=== PATIENT | male | born 1930 | race Caucasian/White ===

== ENCOUNTER 2016-12-30 13:09 | Outpatient (RCR) | payer MEDICARE ==
--- OUTSIDE RECORDS SUMMARY | 2016-12-23 13:14 | XMS REPORT | Continuity of Care Document ---
Author Author [facility] Organization [facility] Address Unknown Phone Unavailable Allergies Active Description Code Type Severity Reaction Onset Reported/Identified Relationship to Patient Clinical Status Yes No Known Drug Allergies [id number] Drug Allergy Unknown N/ A 08/07/2015 Medications Problems Date Dx Coded Attending Type Code Diagnosis Diagnosed By 09/01/2015 IBETH MANN, ELIZABETH P Ot I65.23 09/01/2015 IBETH MANN, ELIZABETH P Ot K11.20 09/03/2015 IBETH MANN, ELIZABETH P Ot I65.23 09/03/2015 IBETH MANN, ELIZABETH P Ot K11.20 10/22/2015 IBETH MANN, ELIZABETH P Ot I65.23 10/22/2015 IBETH MANN, ELIZABETH P Ot K11.20 10/23/2015 IBETH MANN, ELIZABETH P Ot I65.23 10/23/2015 IBETH MANN, ELIZABETH P Ot K11.20 12/03/2015 THERON LANDRY MD Ot R79.9 12/04/2015 THERON LANDRY MD Ot R79.9 01/21/2016 THERON LANDRY MD Ot R79.9 ABNORMAL FINDING OF BLOOD CHEMISTRY, UNS 01/22/2016 THERON LANDRY MD Ot R79.9 02/26/2016 THERON LANDRY MD Ot R79.9 ABNORMAL FINDING OF BLOOD CHEMISTRY, UNS 02/27/2016 ELIZABETH CRISTINA MD Ot 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 02/27/2016 ELIZABETH CRISTINA MD Ot 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, UNSPECIFIED 02/27/2016 THERON LANDRY MD, Ot R79.9 ABNORMAL FINDING OF BLOOD CHEMISTRY, UNS 02/27/2016 THERON LANDRY MD Ot R79.9 ABNORMAL FINDING OF BLOOD CHEMISTRY, UNS 03/01/2016 THERON LANDRY MD Ot R60.0 LOCALIZED EDEMA 03/18/2016 THERON LANDRY MD Ot R60.0 LOCALIZED EDEMA 03/29/2016 THERON LANDRY MD Ot R79.9 ABNORMAL FINDING OF BLOOD CHEMISTRY, UNS 04/01/2016 THERON LANDRY MD Ot R60.0 LOCALIZED EDEMA 04/07/2016 THERON LANDRY MD Ot R79.9 ABNORMAL FINDING OF BLOOD CHEMISTRY, UNS 05/26/2016 THERON LANDRY MD Ot R79.9 ABNORMAL FINDING OF BLOOD CHEMISTRY, UNS 05/27/2016 THERON LANDRY MD Ot R79.9 ABNORMAL FINDING OF BLOOD CHEMISTRY, UNS 06/02/2016 THERON LANDRY MD Ot R79.9 ABNORMAL FINDING OF BLOOD CHEMISTRY, UNS 06/04/2016 THERON LANDRY MD Ot R79.9 ABNORMAL FINDING OF BLOOD CHEMISTRY, UNS 06/29/2016 THERON LANDRY MD Ot R60.0 LOCALIZED EDEMA 06/29/2016 THERON LANDRY MD Ot R79.9 ABNORMAL FINDING OF BLOOD CHEMISTRY, UNS 08/04/2016 THERON LANDRY MD Ot R60.0 LOCALIZED EDEMA 08/04/2016 THERON LANDRY MD Ot R79.9 ABNORMAL FINDING OF BLOOD CHEMISTRY, UNS 09/01/2016 THERON LANDRY MD Ot R60.0 LOCALIZED EDEMA 09/01/2016 THERON LANDRY MD Ot R79.9 ABNORMAL FINDING OF BLOOD CHEMISTRY, UNS 09/02/2016 THERON LANDRY MD Ot R60.0 LOCALIZED EDEMA 09/02/2016 THERON LANDRY MD Ot R79.9 ABNORMAL FINDING OF BLOOD CHEMISTRY, UNS Procedures Results Encounters ACCT No. Visit Date/Time Discharge Status Pt. Type Provider Facility Loc./Unit Complaint [id number] 06/24/2016 13:05:00 2015 00:01:00 DIS Outpatient THERON LANDRY MD [facility] PAR [id number] 03/11/2016 14:37:00 2015 00:01:00 DIS Outpatient THERON LANDRY MD [facility] PAR [id number] 12/04/2015 13:20:00 2015 00:01:00 DIS Outpatient THERON LANDRY MD [facility] PAR [id number] 08/07/2015 13:29:00 2014 23:59:59 CLS Outpatient ELIZABETH CRISTINA MD [facility] RAD [id number] 09/02/2016 00:09:00 PEN Preadmit FRANTZ MANN, JOANA LEACH [facility] PAR [id number] 02/27/2016 09:46:00 ACT Outpatient FRANTZ MANN, SHERWIN SHOEMAKER [facility] RAD
[2016-12-23 15:49] LABS: BASOPHILS % (AUTO) 0 % (0-10); EOSINOPHILS % (AUTO) 1 % (0-10); LYMPHOCYTES # (AUTO) 2.3 X 10^3 (1.0-4.0); LYMPHOCYTES % (AUTO) 39 % (12-44); MEAN CORPUSCULAR HEMOGLOBIN 35 PG (25-34); MEAN CORPUSCULAR HGB CONC 36 G/DL (32-36); MEAN CORPUSCULAR VOLUME 99 FL (80-99); MEAN PLATELET VOLUME 10.8 FL (7.4-10.4); MONOCYTES # (AUTO) 0.6 X 10^3 (0.0-1.0); MONOCYTES % (AUTO) 10 % (0-12); NEUTROPHILS % (AUTO) 51 % (42-75); PLATELET COUNT 221 10^3/uL (130-400); RED BLOOD COUNT 4.26 10^6/uL (4.35-5.85); RED CELL DISTRIBUTION WIDTH 14.9 % (10.0-14.5); WHITE BLOOD COUNT 5.9 10^3/uL (4.3-11.0)
[2016-12-23 16:35] LABS: BILIRUBIN,TOTAL 2.6 MG/DL (0.1-1.0); CALCIUM 8.9 MG/DL (8.5-10.1); CREATININE SERUM 1.19 MG/DL (0.60-1.30); POTASSIUM 4.2 MMOL/L (3.6-5.0); TOTAL PROTEIN 6.8 G/DL (6.4-8.2)
== END 2017-01-04 10:02 | disposition home or self-care (01) ==
LOC: PAR 13:09
PROVIDERS: ATTEND Internal Medicine Hematology & Oncology
DX: R79.9 Abnormal finding of blood chemistry, unspecified (principal); R60.0 Localized edema; R22.1 Localized swelling, mass and lump, neck; Z79.01 Long term (current) use of anticoagulants; Z79.899 Other long term (current) drug therapy
CPT/HCPCS: 36415; 80053; 85025; 99213